=== PATIENT | female | born 1930 | race Caucasian/White ===

== ENCOUNTER 2019-09-18 07:59 | Emergency (ER) | payer MEDICARE, BC ==
[~2019-09-18] VITALS: Ht 167.6 cm; Wt 69.4 kg
[2019-09-18 08:13] VITALS: BP 158/50
[2019-09-18 08:17] LABS: URINE BILIRUBIN NEGATIVE (Negative); URINE BLOOD NEGATIVE (Negative); URINE CLARITY CLEAR; URINE COLOR YELLOW; URINE GLUCOSE-RANDOM NEGATIVE (Negative); URINE KETONES NEGATIVE (Negative); URINE LEUKOCYTES-REFLEX 1+ (Negative); URINE NITRITE-REFLEX NEGATIVE (Negative); URINE PROTEIN NEGATIVE (Negative); URINE UROBILINOGEN 0.2 E.U./dl (0.2-1.0)
[2019-09-18] MEDS ORDERED: FLECAINIDE ACET50 M2 PO (08:18)
[2019-09-18] MEDS ORDERED: XARELTO20 MG PO (08:18)
[2019-09-18] MEDS ORDERED: OMEPRAZOLE 20 M20 M1 PO (08:19)
[2019-09-18] MEDS ORDERED: HYDROCHLOROTHIA25 M2 PO (08:19)
[2019-09-18] MEDS ORDERED: TOPROL XL25 MG PO (08:19)
[2019-09-18] MEDS ORDERED: MELOXICAM15 MG PO (08:20)
[2019-09-18 08:27] LABS: CASTS None Seen /LPF (None Seen); MUCUS 0-3 Light strn/LPF (None Seen); SQUAMOUS 4-10 Moderate /LPF (0-3); URINE RBC 0-2 Rare /HPF (0-2); URINE WBC-REFLEX 6-15 Few /HPF (0-5)
[2019-09-18] MEDS ORDERED: CIPROFLOXACIN500 M1 PO (08:27)
[2019-09-18 08:28] LABS: CRYSTALS None Seen /LPF (None Seen)
== END 2019-09-18 08:41 | disposition home or self-care (01) ==
LOC: M.ERS 07:59
PROVIDERS: Family Medicine
DX: N39.0 Urinary tract infection, site not specified (principal); Z90.710 Acquired absence of both cervix and uterus; Z88.6 Allergy status to analgesic agent; Z91.041 Radiographic dye allergy status; Z88.8 Allergy status to other drugs, medicaments and biological substances